=== PATIENT | female | born 1965 | race Caucasian/White ===

== ENCOUNTER → 2016-06-05 | Outpatient (CLI) | payer OTHER ==
--- NOTE | 2016-06-05 13:01 | MA ---
Diagnostic Digital Mammogram With iCAD Analysis Clinical Indications: The patient has had a benign right breast biopsy. This examination is obtained for evaluation of a nodular asymmetry in the anterior medial right breast noted on CT scan of the est May 03, 2016. Technique: Standard cephalocaudal projections are obtained. Digital breast tomosynthesis was performe d in the MLO projection with reconstruction at 1.0 mm slice thickness and composite MLO views reconst ructed. This examination is processed by the iCAD computer aided detection system. Comparison: August 2015, August 2014, August 2013, July 2012, May 2011, April 2010, MarchMarch 2007. Breast density: Type C: Heterogeneously dense. Findings: CAD was reviewed. The oval well-circumscribed nodular asymmetry noted in the anterior media l right breast on the CT scan has been present on all of the previous mammograms consistent with serene gn etiology. No masses, suspicious calcifications or secondary signs of malignancy are seen. There wheeler s been no significant change in the appearance of either breast. Impression: Benign mammography, BI-RADS 2. Recommendation: Routine mammographic screening in one year as long as physical examination is negativ e in this patient with heterogeneously dense breast parenchyma. [facility] will send a result letter to the patient. Negative mammography should not preclude additional workup of a clinically suspicious finding. The patient's information is entered into a reminder system with a target due date for her next mammo gram.
== END ==
LOC: FIMAGING 11:59
DX: N63 Unspecified lump in breast (principal)
CPT/HCPCS: G0204; G0279

== ENCOUNTER → 2017-09-13 | Outpatient (CLI) | payer OTHER | LOC: FIMAGING 12:10 | PROVIDERS: ATTEND Family Medicine | DX: Z12.31 Encounter for screening mammogram for malignant neoplasm of breast (principal) ==

== ENCOUNTER → 2018-09-30 | Outpatient (CLI) | payer OTHER | LOC: FIMAGING 08:30 ==